=== PATIENT | male | born 1950 | race Caucasian/White ===

== ENCOUNTER 2018-01-30 07:26 | Day surgery (SDC) | payer BC, MEDICARE ==
[~2018-01-30 07:26] MED LIST: Lidocaine 2% 5 ML SDV ONE; Propofol 200 MG/20 ML SDV ONE; fentaNYL 100 MCG/2 ML SDV ONE
[2018-01-30] MEDS ORDERED: Lactated Ringers 1,000 ML IV SCH ×2 (08:00→09:45)
--- NOTE | 2018-01-30 08:23 | PCM.PREANE ---
Preanesthetic Assessment - Anesthesia/Transfusion/Family Hx Anesthesia History: Prior Anesthesia Without Reaction Family History of Anesthesia Reaction: No Transfusion History: No Prior Transfusion(s) - Review of Systems General: No Symptoms Pulmonary: No Symptoms Cardiovascular: No Symptoms Gastrointestinal: No Symptoms Neurological: No Symptoms Other: Reports: None - Physical Assessment NPO Status Date: 01/29/18 O2 Sat by Pulse Oximetry: 97 Respiratory Rate: 16 Vital Signs: Last Vital Signs Temp 36.2 C 01/30/18 08:16 Pulse 72 01/30/18 08:16 Resp 16 01/30/18 08:16 BP 115/56 L 01/30/18 08:16 Pulse Ox 97 01/30/18 08:16 Height: 1.83 m Weight: 97.069 kg ASA Class: 1 Mental Status: Alert & Oriented x3 Airway Class: Mallampati = 1 Dentition: Reports: Normal Dentition ROM/Head Extension: Full Lungs: Clear to Auscultation, Normal Respiratory Effort Cardiovascular: Regular Rate, Regular Rhythm - Allergies Allergies/Adverse Reactions: Allergies Allergy/AdvReac Type Severity Reaction Status Date / Time No Known Allergies Allergy Verified 01/27/18 12:36 - Blood Blood Available: No - Anesthesia Plan Pre-Op Medication Ordered: None - Acknowledgements Anesthesia Type Planned: MAC Pt an Appropriate Candidate for the Planned Anesthesia: Yes Alternatives and Risks of Anesthesia Discussed w Pt/Guardian: Yes Pt/Guardian Understands and Agrees with Anesthesia Plan: Yes Additional Comments: PMH: none of anesthetic significance PLAN; MAC PreAnesthesia Questionnaire - Past Health History Medical/Surgical History: Denies Medical/Surgical History HEENT History: Reports: Hard of Hearing Musculoskeletal History: Reports: Arthritis Other Musculoskeletal History: right shoulder pain Neurological History: Reports: Concussion - Past Surgical History HEENT Surgical History: Reports: LASIK GI Surgical History: Reports: Colonoscopy, Small Bowel, Other (See Below) Other GI Surgeries/Procedures: Laparotomy for SBO - SUBSTANCE USE Smoking Status *Q: Former Smoker Tobacco Use Within Last Twelve Months: No Recreational Drug Use History: No - HOME MEDS Home Medications: Home Meds Fluticasone Propionate [Flonase Allergy Relief] 2 spray NASBOTH DAILY PRN [History] Sildenafil Citrate [Sildenafil] 3 - 4 tab PO ASDIRECTED PRN 01/27/18 [History] - CURRENT (IN HOUSE) MEDS Current Meds: Current Medications Lactated Ringer's (Ringers, Lactated) 1,000 mls @ 125 mls/hr IV ASDIRECTED FREDDY Last Admin: 01/30/18 08:20 Dose: 125 mls/hr Discontinued Medications Fentanyl (Sublimaze) Confirm Administered Dose 100 mcg .ROUTE .STK-MED ONE Stop: 01/30/18 06:59 Lidocaine (Xylocaine-Mpf 2%) Confirm Administered Dose 5 ml .ROUTE .STK-MED ONE Stop: 01/30/18 06:59 Propofol (Diprivan 20 Ml) Confirm Administered Dose 400 mg .ROUTE .STK-MED ONE Stop: 01/30/18 06:59
[2018-01-30] MEDS ORDERED: Glycopyrrolate 0.2 MG/ML SDV ONE ×2 (09:21)
--- NOTE | 2018-01-30 09:44 | PCM.OPNOTE ---
- General Post-Op/Procedure Note Date of Surgery/Procedure: 01/30/18 Operative Procedure(s): Colonoscopy Pre Op Diagnosis: Change in bowel habits. Desire for colorectal cancer screening. Post-Op Diagnosis: No evidence of neoplasia Anesthesia Technique: MAC (ASA II) Primary Surgeon: Yahir Garcia Condition: Good Free Text/Narrative:: DICTATION 192962 CPT CODE 50056
--- NOTE | 2018-01-30 09:58 | PCM.POSTAN ---
POST ANESTHESIA ASSESSMENT - MENTAL STATUS Mental Status: Alert, Oriented - RESPIRATORY Respiratory Status: Respiratory Rate WNL, Airway Patent, O2 Saturation Stable - CARDIOVASCULAR CV Status: Pulse Rate WNL, Blood Pressure Stable - GASTROINTESTINAL GI Status: No Symptoms - PAIN Pain Score: 0 - POST OP HYDRATION Hydration Status: Adequate & Stable
--- NOTE | 2018-01-30 10:33 | PCM48HPAN ---
Post Anesthesia Note - EVALUATION WITHIN 48HRS OF ANESTHETIC Vital Signs in Normal Range: Yes Patient Participated in Evaluation: Yes Respiratory Function Stable: Yes Airway Patent: Yes Cardiovascular Function Stable: Yes Hydration Status Stable: Yes Pain Control Satisfactory: Yes Nausea and Vomiting Control Satisfactory: Yes Mental Status Recovered: Yes Resp Rate: 12
[2018-01-30 10:36] VITALS: BP 99/53
--- NOTE | 2018-01-30 11:19 | OR ---
SURGEON: Yahir Garcia M.D. DATE OF PROCEDURE: 01/30/2018 OPERATION PERFORMED: Colonoscopy. ANESTHESIA: MAC. ASA CLASSIFICATION: II. PREOPERATIVE DIAGNOSES: 1. Change in bowel habits. 2. Desire for colorectal cancer screening. POSTOPERATIVE DIAGNOSIS: No evidence of neoplasia. DESCRIPTION OF PROCEDURE: The patient was taken to the endoscopy room, positioned on the endoscopy table in the left lateral decubitus position. Time-out was called for appropriate identification of the patient and procedure. Monitored anesthesia care was provided. The colonoscope was inserted into the rectum and advanced without difficulty to the cecum where the colonoscope was retroflexed to visualize the ascending colon from below. The colonoscope was then straightened and slowly withdrawn. The cecum, ascending colon, hepatic flexure, transverse colon, splenic flexure, descending colon, sigmoid colon, and rectum were very well visualized. No tumors, polyps, diverticula, or angiodysplastic changes were noted. There was no evidence of inflammatory bowel disease. Once the colonoscope was withdrawn to the rectum, it was retroflexed to visualize the anal orifice from above. No tumors, polyps, or acute hemorrhoidal changes were noted. The colonoscope was then straightened, the rectum aspirated, and the colonoscope removed. The patient tolerated the procedure well and was taken to recovery room in stable condition. BRADY / DANIEL /[id number]
== END 2018-01-30 10:30 | disposition home or self-care (01) ==
LOC: MW.SDS 07:26
PROVIDERS: ATTEND Surgery
DX: R19.4 Change in bowel habit (principal); M19.011 Primary osteoarthritis, right shoulder; M19.012 Primary osteoarthritis, left shoulder; M75.111 Incomplete rotator cuff tear or rupture of right shoulder, not specified as traumatic; K80.20 Calculus of gallbladder without cholecystitis without obstruction; K42.9 Umbilical hernia without obstruction or gangrene; E34.9 Endocrine disorder, unspecified; N52.9 Male erectile dysfunction, unspecified; Z79.899 Other long term (current) drug therapy; Z87.891 Personal history of nicotine dependence
CPT/HCPCS: 45378; J3010; J7120; J2704

== ENCOUNTER 2020-11-17 18:07 | Emergency (ER) | payer MEDICARE, BC ==
--- NOTE | 2020-11-17 18:57 | CR ---
INDICATION: Fish hook to hand TECHNIQUE: Hand radiograph 3 views left COMPARISON: None FINDINGS: Bone: No acute fractures or aggressive bone lesions are identified. Joint: The carpal and metacarpal-phalangeal joints are unremarkable in appearance. The interphalangeal joints are normal in appearance. Soft tissue: A metallic, barbed fishhook fragment is seen in the soft tissues the thenar eminence. IMPRESSIONS: 1. No acute osseous injuries or abnormalities are noted. 2. A metallic, barbed fishhook fragment is seen in the soft tissues the thenar eminence. Dictated by Zach Lamb MD @ 11/17/2020 6:56:14 PM Dictated by: Zach Lamb MD @ 11/17/2020 18:56:17 (Electronically Signed)
[2020-11-17] MEDS ORDERED: Diphtheria,Pertussis(Acell),Tetanus Vaccine 0.5 ML Syringe IM ONE (19:03)
--- NOTE | 2020-11-17 19:04 | EDM.PDOC ---
ED HPI GENERAL MEDICAL PROBLEM - General Chief Complaint: Upper Extremity Injury/Pain Stated Complaint: TREBLE HOOK IN LT HAND Time Seen by Provider: 11/17/20 18:17 Source of Information: Reports: Patient History Limitations: Reports: No Limitations - History of Present Illness INITIAL COMMENTS - FREE TEXT/NARRATIVE: HISTORY AND PHYSICAL: History of present illness: Patient is a 70-year-old male who presents to the ED today with concern of a fishhook in the palm of his left hand that occurred just prior to arrival to the emergency room. Patient states that he had a 3 prong paddle fish hook on a wooden pole that he uses for minerals. Patient states he went to go throw the stick on the ground and did not realize he caught his hand with a fishhook. Patient states that he used the tool to cut the fish hook away from the rest of the prongs but was unable to get the hook out himself. Patient states that he is not up-to-date on tetanus and would like to update this today. Patient states he is fully able to move his left hand, digits, and wrist without difficulty. Patient denies fever, chills, chest pain, shortness of breath, or cough. Denies headache, neck stiff ness, change in vision, syncope, or near syncope. Denies nausea, vomiting, abdominal pain, diarrhea, constipation, or dysuria. Has not noted any blood in urine or stool. Patient has been eating and drinking appropriately. Review of systems: As per history of present illness and below otherwise all systems reviewed and negative. Past medical history: As per history of present illness and as reviewed below otherwise noncontributory. Surgical history: As per history of present illness and as reviewed below otherwise noncontributory. Social history: See social history for further information Family history: As per history of present illness and as reviewed below otherwise noncontributory. Physical exam: General: Patient is alert, oriented, and in no acute distress. Patient sitting c omfortably on exam table. Vitals stable and reviewed by me. HEENT: Atraumatic, normocephalic, pupils equal and reactive bilaterally, negative for conjunctival pallor or scleral icterus, mucous membranes moist, TMs normal bilaterally, throat clear, neck supple, nontender, trachea midline. No drooling or trismus noted. No meningeal signs. No hot potato voice noted. Lungs: Clear to auscultation, breath sounds equal bilaterally, chest nontender. Heart: S1S2, regular rate and rhythm without overt murmur Abdomen: Soft, nondistended, nontender. Negative for masses or hepatosplenomegaly. Negative for costovertebral tenderness. Pelvis: Stable nontender. Genitourinary: Deferred. Rectal: Deferred. Skin: Intact, warm, dry. No lesions or rashes noted. Extremities: There is a fishhook noted to the base of the left palmar hand that is 2 cm out of the palm with the david nearly out of the skin. Patient has full range of motion of all digits of the left hand and wrist without deficit. Radial pulses grossly intact of the left upper extremity with capillary refill less than 2 seconds. Patient has intact sensation to the complete left upper extremity to light and deep touch. Compartments are soft of the left upper extremity. Otherwise, atraumatic, negative for cords or calf pain. Neurovascular unremarkable. Neuro: Awake, alert, oriented. Cranial nerves II through XII unremarkable. Cerebellum unremarkable. Motor and sensory unremarkable throughout. Exam nonfocal. Notes: Signs and symptoms that were prompt return to the ED thoroughly discussed with patient. Voices understanding and is agreeable to plan of care. Denies any further questions or concerns at this time. Diagnostics: Hand x-ray Therapeutics: Lidocaine, tdap, foreign body removal (see procedure note below) Prescription: None Impression: Foreign body to left hand, removed Plan: 1. Rest, ice, elevate the affected extremity. You can apply ice 15 minutes on, 15 minutes off. 2. Tylenol and/or Ibuprofen as directed for pain management or discomfort. 3. Follow up with the primary care provider as discussed. Return to the ED as needed and as discussed. Definitive disposition and diagnosis as appropriate pending reevaluation and review of above. Left Hand Pain Score (Numeric/FACES): 4 - Related Data Allergies Allergy/AdvReac Type Severity Reaction Status Date / Time No Known Allergies Allergy Verified 11/17/20 18:23 Home Meds: Home Meds Fluticasone Propionate [Flonase Allergy Relief] 2 spray NASBOTH DAILY PRN 01/27/18 [History] Sildenafil Citrate 3 - 4 tab PO ASDIRECTED PRN 01/27/18 [History] Levothyroxine [Synthroid] 50 mcg PO ACBREAKFAST 11/17/20 [History] Past Medical History - Past Health History Medical/Surgical History: Denies Medical/Surgical History HEENT History: Reports: Hard of Hearing Musculoskeletal History: Reports: Arthritis Other Musculoskeletal History: right shoulder pain Neurological History: Reports: Concussion - Past Surgical History HEENT Surgical History: Reports: SANJAY GI Surgical History: Reports: Colonoscopy, Small Bowel, Other (See Below) Other GI Surgeries/Procedures: Laparotomy for SBO Social & Family History - Family History Family Medical History: No Pertinent Family History - Tobacco Use Tobacco Use Status *Q: Never Tobacco User - Recreational Drug Use Recreational Drug Use: No Review of Systems - Review of Systems Review Of Systems: Comprehensive ROS is negative, except as noted in HPI. ED EXAM, GENERAL - Physical Exam Exam: See Below (see dictation) ED TRAUMA EXTREMITY PROCEDURES - Foreign Body Removal Indication:: Fish hook to left hand Consent Obtained: Patient Performing Doctor:: Christa Gill Foreign Body Other Location Comment:: Left proximal palmar aspect of hand Anesthesia Type: Local Findings:: Fish hook david Complications:: No Course - Vital Signs Last Recorded V/S: Last Vital Signs Temp 97.4 F 11/17/20 19:13 Pulse 59 L 11/17/20 19:13 Resp 18 11/17/20 19:13 BP 105/56 L 11/17/20 19:13 Pulse Ox 95 11/17/20 19:13 - Orders/Labs/Meds Meds: Medications Discontinued Medications Generic Name Dose Route Start Last Admin Trade Name Freq PRN Reason Stop Dose Admin Diphtheria/Tetanus/Acell Pertussis 0.5 ml 11/17/20 19:03 11/17/20 19:17 Diphtheria,Pertussis(Acell),Tetanus Vaccine 0.5 Ml Syringe IM 11/17/20 19:04 0.5 ml .ONCE ONE Administration Lidocaine HCl 10 ml 11/17/20 18:52 11/17/20 18:57 Lidocaine 1% 5 Ml Sdv INJECT 11/17/20 18:53 10 ml ONETIME ONE Administration Departure - Departure Time of Disposition: 19:04 Disposition: Home, Self-Care 01 Clinical Impression: Foreign body in hand Qualifiers: Encounter type: initial encounter Laterality: left Qualified Code(s): S60.552A - Superficial foreign body of left hand, initial encounter - Discharge Information Instructions: Skin Foreign Body Referrals: PCP,None [Primary Care Provider] - Forms: ED Department Discharge Additional Instructions: The following information is given to patients seen in the emergency department who are being discharged to home. This information is to outline your options for follow-up care. We provide all patients seen in our emergency department with a follow-up referral. The need for follow-up, as well as the timing and circumstances, are variable depending upon the specifics of your emergency department visit. If you don't have a primary care physician on staff, we will provide you with a referral. We always advise you to contact your personal physician following an emergency department visit to inform them of the circumstance of the visit and for follow-up with them and/or the need for any referrals to a consulting specialist. The emergency department will also refer you to a specialist when appropriate. This referral assures that you have the opportunity for follow-up care with a specialist. All of these measure are taken in an effort to provide you with optimal care, which includes your follow-up. Under all circumstances we always encourage you to contact your private physician who remains a resource for coordinating your care. When calling for follow-up care, please make the office aware that this follow-up is from your recent emergency room visit. If for any reason you are refused follow-up, please contact the [facility] at and asked to speak to the emergency department charge nurse. [facility] [address] [place], [place] [id number] [place] [address] 1. Rest, ice, elevate the affected extremity. You can apply ice 15 minutes on, 15 minutes off. 2. Tylenol and/or Ibuprofen as directed for pain management or discomfort. 3. Follow up with the primary care provider as discussed. Return to the ED as needed and as discussed. Sepsis Event Note (ED) - Evaluation Sepsis Screening Result: No Definite Risk - Focused Exam Vital Signs: Vital Signs Temp Pulse Resp BP BP Pulse Ox 11/17/20 19:13 97.4 F 59 L 18 105/56 L 95 11/17/20 18:17 96.8 F L 97 17 107/61 97
[2020-11-17 19:14] VITALS: BP 105/56; PULSE 59
== END 2020-11-17 19:20 | disposition home or self-care (01) ==
LOC: MW.ED 18:07
DX: S60.552A Superficial foreign body of left hand, initial encounter (principal); Z79.899 Other long term (current) drug therapy; Z23 Encounter for immunization; W45.8XXA Other foreign body or object entering through skin, initial encounter
CPT/HCPCS: 10120; 73130-26-LT; 73130-LT; 90471; 90715; 99282; 99283-25